=== PATIENT | female | born 1945 | race Caucasian/White ===

== ENCOUNTER 2019-07-19 11:11 | Outpatient (CLI) | payer MEDICARE, BC | END 2019-07-19 23:59 | disposition home or self-care (01) | LOC: CVU 11:11 | PROVIDERS: ATTEND Internal Medicine Cardiovascular Disease | DX: I06.1 Rheumatic aortic insufficiency (principal); R06.02 Shortness of breath; I65.29 Occlusion and stenosis of unspecified carotid artery | CPT/HCPCS: 93005; 93306; 93356 ==

== ENCOUNTER 2019-07-26 08:57 | Outpatient (CLI) | payer MEDICARE, BC ==
[2019-07-26] MEDS ORDERED: VISIPAQUE 320 MG/ML, 150ML BOTTLE ONE (11:24)
== END 2019-07-26 23:59 | disposition home or self-care (01) ==
LOC: CVU 08:57 → RAD 23:59
PROVIDERS: ATTEND Internal Medicine Cardiovascular Disease
DX: I65.23 Occlusion and stenosis of bilateral carotid arteries (principal); I35.0 Nonrheumatic aortic (valve) stenosis; I77.810 Thoracic aortic ectasia; K43.9 Ventral hernia without obstruction or gangrene
CPT/HCPCS: 71275; 74174; 93880; Q9967

== ENCOUNTER → 2019-09-06 | Outpatient (CLI) | payer MEDICARE, BC ==
[~2019-09-06] MED LIST: ASPI81TA45 PO; ATOR40TA PO; CLOP75TA PO
== END | disposition home or self-care (01) ==
LOC: CVU 10:23
PROVIDERS: ATTEND Internal Medicine Cardiovascular Disease
DX: R06.02 Shortness of breath (principal); I35.0 Nonrheumatic aortic (valve) stenosis; I65.29 Occlusion and stenosis of unspecified carotid artery
CPT/HCPCS: 93306

== ENCOUNTER → 2020-08-21 | Outpatient (CLI) | payer MEDICARE, BC | END | disposition home or self-care (01) | LOC: CFH 10:33 | PROVIDERS: ATTEND Internal Medicine Cardiovascular Disease | DX: Z01.810 Encounter for preprocedural cardiovascular examination (principal); R06.02 Shortness of breath; I35.0 Nonrheumatic aortic (valve) stenosis; I65.29 Occlusion and stenosis of unspecified carotid artery | CPT/HCPCS: 93306 ==